=== PATIENT | female | born 1985 | race Caucasian/White ===

== ENCOUNTER 2022-03-18 08:13 | Emergency (ER) | payer OTHER, SELFPAY ==
[2022-03-18 08:20] VITALS: BP 134/60; PULSE 92; RESP 16; TEMP 38.1; O2SAT 100
--- NOTE | 2022-03-18 08:21 | ED.URI ---
HPI - URI/Sore Throat General Chief Complaint: Upper Respiratory Infection Stated Complaint: aches dizzy nausea chills Time Seen by Provider: 03/18/22 08:21 Source: patient and RN notes reviewed History of Present Illness HPI Narrative: Patient is a 36-year-old female presents the urgent care with complaints of body aches, nausea, chills and dizziness. Patient states that it started last night and woke up with increasing symptoms with fever. Patient has not taken anything [id number] for her symptoms. Patient states that her daughter influenza last week and she believes that she has the flu. Denies of any other ill contacts. No other complaints. No acute distress noted. Patient aware of the plan of care. Some parts of this dictation were generated by voice recognition software and may contain typographical and/or grammatical inaccuracies. Related Data Home Medications Medication Instructions Recorded Confirmed fluticasone propionate 50 mcg INTRANASAL BID PRN 03/18/22 03/18/22 Allergies Allergy/AdvReac Type Severity Reaction Status Date / Time No Known Allergies Allergy Unverified 03/12/19 18:12 Review of Systems Review of Systems: CONSTITUTIONAL: Reports a fever, chills EYES: Denies visual changes, redness, or discharge. ENT: Denies rhinorrhea, congestion, sore throat, or otalgia. CARDIOVASCULAR: Denies chest pain, palpitations, or edema. RESPIRATORY: Denies cough or dyspnea. GASTROINTESTINAL: Denies abdominal pain, vomiting, or diarrhea. Reports of nausea GENITOURINARY: Denies dysuria or hematuria. SKIN: Denies rash or itching. MUSCULOSKELETAL: Denies back pain, joint pain. reports of body aches NEUROLOGIC: Denies headache, numbness, or weakness. All other systems reviewed are negative, except as documented in HPI. PMFSH Comments At the time of my signature, I reviewed and agree with the nursing past medical, surgical, social, and family history. There is no relevant family history pertinent to the patient complaint. Exam Narrative: GENERAL: This is a well-nourished, well-developed patient. Appears fatigued HEAD: normocephalic, atraumatic. EYES: PERRL. Sclera clear/white. Vision is grossly intact. EARS: External ears normal, auditory canals clear and without drainage, TMs normal without perforation. Hearing grossly intact. NOSE: External nose normal with no obvious nasal discharge, nares without redness, yellow rhinorrhea. THROAT: Mucous membranes moist, posterior pharynx clear. Mild postnasal drainage NECK: Neck supple CARDIOVASCULAR: Regular rate and rhythm without murmurs, gallops, or rubs. RESPIRATORY: Clear to auscultation. Breath sounds equal bilaterally. No wheezes, rales, or rhonchi. GASTROINTESTINAL: Abdomen soft, non-tender, nondistended. Bowel sounds are active. No guarding. SKIN: warm, intact with no suspicious lesions or rash, good texture and turgor. NEURO: awake, alert, and oriented to person, place and time. There were no obvious focal neurologic abnormalities. EXTREMITIES: No clubbing, cyanosis, or edema. Course Course Level of Care: Express Care Visit Vital Signs Vital signs: Vital Signs Temperature 100.5 F H 03/18/22 08:20 Pulse Rate 92 03/18/22 08:20 Respiratory Rate 16 03/18/22 08:20 Blood Pressure 134/60 03/18/22 08:20 Pulse Oximetry 100 03/18/22 08:20 Temperature 100.5 F H 03/18/22 08:20 Pulse Rate 92 03/18/22 08:20 Respiratory Rate 16 03/18/22 08:20 Blood Pressure 134/60 03/18/22 08:20 Pulse Oximetry 100 03/18/22 08:20 Reviewed MDM - URI/Sore Throat MDM Narrative Medical decision making narrative: Reviewed lab results with the patient. She is aware that flu swab was negative. Rapid COVID swab was also negative. Your viral infection may take a few days to clear up however treat with [id number] medication for symptom relief such as Tylenol/ibuprofen/Zyrtec/Benadryl. Use the Benadryl prior to bedtime and humidifier at night. Use
== END 2022-03-18 09:15 | disposition home or self-care (01) ==
PROVIDERS: Emergency Provider Nurse Practitioner Family; PCP Family Medicine
DX: B34.9 Viral infection, unspecified (principal); Z20.822 Contact with and (suspected) exposure to COVID-19
CPT/HCPCS: 87426; 87804; 99203; C9803; G0463

== ENCOUNTER 2022-08-04 17:10 | Emergency (ER) | payer OTHER, SELFPAY ==
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
[2022-08-04 17:16] VITALS: BP 132/63; PULSE 78; RESP 14; TEMP 36.7; O2SAT 98
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
== END 2022-08-04 18:19 | disposition home or self-care (01) ==
PROVIDERS: Emergency Provider Nurse Practitioner; PCP Family Medicine
DX: S90.512A Abrasion, left ankle, initial encounter (principal); S50.812A Abrasion of left forearm, initial encounter; V87.8XXA Person injured in other specified noncollision transport accidents involving motor vehicle (traffic), initial encounter
CPT/HCPCS: 73610; 73630; 99213; G0463

== ENCOUNTER 2024-02-25 17:37 | Emergency (ER) | payer BC, SELFPAY ==
[2024-02-25 17:43] VITALS: BP 128/83; PULSE 78; RESP 16; TEMP 37.2; O2SAT 100
[2024-02-25 17:47] VITALS: BP 128/83; PULSE 78; RESP 16; TEMP 37.2; O2SAT 100
--- NOTE | 2024-02-25 17:53 | ED.URI ---
HPI - URI/Sore Throat General Chief Complaint: Upper Respiratory Infection Stated Complaint: Dizziness/Shortness of Breath/Chest Pain Time Seen by Provider: 02/25/24 18:02 Source: patient and RN notes reviewed Mode of arrival: ambulatory Limitations: no limitations History of Present Illness HPI Narrative: 38-year-old female presents with concern for 4 day history of cough, runny nose, stuffy nose, upper chest pain. Reports she had fever when symptoms 1st started. She has been taking DayQuil and NyQuil without relief. She has history of a bicuspid valve problem. MD elicited complaint: cough and nasal congestion Related Data Home Medications Medication Instructions Recorded Confirmed fluticasone furoate 100 inhalation 02/25/24 mcg-vilanterol 25 mcg/dose inhalation powder (Breo Ellipta) Allergies Allergy/AdvReac Type Severity Reaction Status Date / Time omeprazole Allergy Swelling Verified 02/25/24 18:01 Review of Systems Review of Systems: CONSTITUTIONAL: Reports malaise, history fever. EYES: Denies visual changes, redness, or discharge. ENT: Reports rhinorrhea, congestion. Denies otalgia and sore throat. CARDIOVASCULAR: Reports left chest pain with coughing. Denies palpitations, or edema. RESPIRATORY: Reports cough. Denies dyspnea. GASTROINTESTINAL: Denies abdominal pain, nausea, vomiting, diarrhea SKIN: Denies rash or itching. MUSCULOSKELETAL: Denies myalgia. NEUROLOGIC: Denies headache. All systems reviewed & are unremarkable except as noted in HPI and below PMFSH Past Medical History Medical History (Updated 02/25/24 @ 18:11 by Cherelle Rodriguez NP) No pertinent past medical history Surgical History Surgical History No pertinent past surgical history Family History Family History Mother Family history non-contributory Social History Social History (Updated 08/04/22 @ 18:27 by Gonzales Masters, GABRIELA, ) Substance use: never Gender identity (if verbalized by the patient): Female Spiritual care concerns: No Comments At time of signature, agree with nursing past medical, surgical, social and family history. There is no relevant family history pertinent to the presenting complaint Exam Narrative: GENERAL: Nontoxic-appearing, well-nourished, and in no acute distress. HEAD: Normocephalic EYES: PERRLA, conjunctivae clear ENT: Nares clear, turbinates edematous and erythematous, clear discharge. Mucous membranes moist. TM pearly schmid with dull light reflex bilaterally; no tragal tenderness. Oropharynx not erythematous without lesions. Tonsils not enlarged and without exudate, no drooling, no hoarseness, no trismus, uvula midline. NECK: Supple. No lymphadenopathy CHEST: Clear to auscultation, breath sounds equal. No wheezing, rhonchi, rales, or stridor. No respiratory distress, speaks in full sentences. Cough noted HEART: Regular rate and rhythm. No murmur heard. SKIN: Warm, dry, no rash. NEURO: Alert and oriented x3. PSYCH: Normal mood and affect Course Course Emergency Course: Patient is aware of diagnosis, understands and agrees to treatment plan. Anticipatory guidance given. Patient agrees to follow-up as directed and is aware of reasons to seek care at the emergency department. Portions of this record may have been created with voice recognition software Level of Care: Express Care Visit Vital Signs Vital signs: Vital Signs Temperature 98.9 F 02/25/24 17:43 Pulse Rate 78 02/25/24 17:43 Respiratory Rate 16 02/25/24 17:43 Blood Pressure 128/83 02/25/24 17:43 Pulse Oximetry 100 02/25/24 17:43 Oxygen Delivery Room Air 02/25/24 17:43 Temperature 98.9 F 02/25/24 17:47 Pulse Rate 78 02/25/24 17:47 Respiratory Rate 16 02/25/24 17:47 Blood Pressure 128/83 02/25/24 17:47 Pulse Oximetry 100 02/25/24 17:47 Oxy
--- NOTE | 2024-02-25 17:54 | ECG_ITS ---
SEE SCANNED COPY FOR CONFIRMED REPORT MTDD
== END 2024-02-25 18:15 | disposition home or self-care (01) ==
PROVIDERS: Emergency Provider Nurse Practitioner; PCP Family Medicine
DX: J06.9 Acute upper respiratory infection, unspecified (principal); R05.9 Cough, unspecified
CPT/HCPCS: 93005; 99213; G0463

== ENCOUNTER 2025-11-04 12:19 | Emergency (ER) | payer BC, SELFPAY ==
--- OUTSIDE RECORDS SUMMARY | 2024-07-29 11:30 | XMS_ITS ---
Author Organization [facility] ([address]) Address [address] [place] [address] Care Team Providers Care Ring Attacher Name Role Phone Natacha Cunha Unavailable [phone] REASON FOR VISIT Chronic upper airway symptoms concerning for uncontrolled atopic disease, Chronic lower airways symptoms concerning for possible asthma Problems Problem Type SNOMED Code ICD Code Onset Dates Problem Status W/U Status Risk Notes Problem Allergic rhinitis caused by pollen (disorder) (99057812) Allergic rhinitis due to pollen (J30.1) Active confirmed Problem Allergic rhinitis caused by animal hair and dander ([id number]) Allergic rhinitis due to animal (cat) (dog) hair and dander (J30.81) Active confirmed Problem Allergic rhinitis (54038581) Other allergic rhinitis (J30.89) Active confirmed Problem Chronic allergic conjunctivitis (78987060) Other chronic allergic conjunctivitis (H10.45) Active confirmed Problem Chronic rhinitis (76281431) Chronic rhinitis (J31.0) Active confirmed Problem Uncomplicated moderate persistent asthma (720015493) Moderate persistent asthma, uncomplicated (J45.40) Active confirmed Problem Uncomplicated mild persistent asthma (134809729) Mild persistent asthma, uncomplicated (J45.30) Active confirmed Problem Uncomplicated severe persistent asthma (327919240) Severe persistent asthma, uncomplicated (J45.50) Active confirmed Encounters Encounter Location Date Provider Diagnosis [facility] [address] [facility] [place] [address] 07/29/2024 Natacha Cunha Allergic rhinitis du e to pollen J30.1 ; Allergic rhinitis due to animal (cat) (dog) hair and dander J30.81 ; Other allergic rhinitis J30.89 ; Other chronic allergic conjunctivitis H10.45 ; Hypertrophy of nasal turbinates J34.3 ; Chronic rhinitis J31.0 ; Moderate persistent asthma, uncomplicated J45.40 ; Mild persistent asthma, uncomplicated J45.30 and Severe persistent asthma, uncomplicated J45.50 Assessments Encounter Date Diagnosis (ICD Code) Assessment Notes Treatment Notes Treatment Clinical Notes Section Notes 07/29/2024 Allergic rhinitis due to pollen (ICD-10 - J30.1) Given the history and symptoms, skin testing was performed to common aeroallergens to determine atopic status. clearly suffers from atopic disease based upon our skin testing and clinical history. Accordingly, we have introduced a new, aggressive medication regimen, discussed nasal washes and allergy-specific avoidance measures. We also discussed adjunctive therapies including subcutaneous, specific allergen immunotherapy as relates to the treatment and prevention of atopic disease. They are currently considering the risks, benefits and alternatives to this care. Risks: bleeding, infection, allergic reaction, anaphylaxis; Benefits: reduced need for medications, improved symptoms, disease modification. Alternatives: watch/wait, change medication regimen, improve allergy avoidance measures. Follow-up in 1 month for interval evaluation and management 07/29/2024 Allergic rhinitis due to animal (cat) (dog) hair and dander (ICD-10 - J30.81) Follow allergen avoidance, meds and consider SCIT as an adjunctive treatment to current regimen 07/29/2024 Other allergic rhinitis (ICD-10 - J30.89) Follow allergen avoidance, meds and consider SCIT as an adjunctive treatment to current regimen 07/29/2024 Other chronic allergic conjunctivitis (ICD-10 - H10.45) Given ocular signs and symptoms I encouraged allergy avoidance measures and meds as above. If symptoms persist, consider adding additional medications including intraocular antihistamine/mas t cell stabilizer, PRN and consider SCIT as an adjunctive measure 07/29/2024 Hypertrophy of nasal turbinates (ICD-10 - J34.3) 07/29/2024 Chronic rhinitis (ICD-10 - J31.0) 07/29/2024 Moderate persistent asthma, uncomplicated (ICD-10 - J45.40) 07/29/2024 Mild persistent asthma, uncomplicated (ICD-10 - J45.30) 07/29/2024 Severe persistent asthma, uncomplicated (ICD-10 - J45.50) Plan Of Treatment Treatment Notes Assessment Notes Allergic rhinitis due to pollen Given th e history and symptoms, skin testing was performed to common aeroallergens to determine atopic status. clearly suffers from atopic disease based upon our skin testing and clinical history. Accordingly, we have introduced a new, aggressive medication regimen, discussed nasal washes and allergy-specific avoidance measures. We also discussed adjunctive therapies including subcutaneous, specific allergen immunotherapy as relates to the treatment and prevention of atopic disease. They are currently considering the risks, benefits and alternatives to this care. Risks: bleeding, infection, allergic reaction, anaphylaxis; Benefits: reduced need for medications, improved symptoms, disease modification. Alternatives: watch/wait, change medication regimen, improve allergy avoidance measures. Follow-up in 1 month for interval evaluation and management Allergic rhinitis due to ani mal (cat) (dog) hair and dander Follow allergen avoidance, meds and consider SCIT as an adjunctive treatment to current regimen Other allergic rhinitis Follow allergen avoidance, meds and consider SCIT as an adjunctive treatment to current regimen Other chronic allergic conjunctivitis Gi medardo ocular signs and symptoms I encouraged allergy avoidance measures and meds as above. If symptoms persist, consider adding additional medications including intraocular antihistamine/mast cell stabilizer, PRN and consider SCIT as an adjunctive measure Next Appt Details Follow Up: 4 Weeks, Reason: Evaluation and Management Progress Notes * JERSONAlfredaBarbaraDOB:1985 (40 yo F)Acc No.[id number]:07/29/2024 Progress Notes Patient: Barbara ANTON Provider: BELTRAN LeonBC :1985 A ge:38 Y S ex:Female Date:07/29/2024 Address:[address] [place], [place] [id number] Subjective: * Chief Complaints: * 1 . Chronic upper airway symptoms concerning for uncontrolled atopic disease. 2. Chronic lower airways symptoms concerning for possible asthma. * HPI: * Introduction: HPI: x . * ROS: A LLERGY: Positive p er the HPI and history, otherwise unremarkable.? S PECIAL SENSES: Positve for n one. C ONSTITUTIONAL: Positive for n one. E NT: Positive p er the HPI and history, otherwise unremarkable.? R ESPIRATORY: Positive p er the HPI and history, otherwise unremakable.? O PHTHALMOLOGY: Positive for p er the HPI and history, otherwise unremarkable. E NDOCRINOLOGY: Positive for n one. C ARDIOLOGY: Positive for n one. G ASTROENTEROLOGY: Positive for n one. U ROLOGY: Positive for n one. D ERMATOLOGY: Positive for p er the HPI and history, otherwise unremakable. N EUROLOGY: Positive for n one. H EMATOLOGY/LYMPH: Positive for n one. M USCULOSKELETAL: Positive for n one. P SYCHOLOGY: Positive for n one. A ll other review of systems per the HPI and history, otherwise unremarkable. * Medical History: Objective: * Vitals: * Examination: G eneral examination: General appearance: p leasant, well-developed, well-nourished. HEENT: p upils equal, round, and reactive to light and accommodation, conjunctiva are injected bilaterally, no tenderness to palpation of the sinuses, TM's without evidence of acute infection, turbinates 2+ swollen and pale inferiorly bilaterally, clear rhinorrhea is present, no polyps noted, no septal perforation, posterior oropharynx is erythematous and cobblestoning is present, erythema on pharyngeal wall, no exudates, no tongue swelling, and uvula is midline. Oral cavity: n ormal, no lesions. Neck, thyroid : s upple, non-tender, no anterior cervical lymphadenopathy. Breasts : n ot performed. Heart: R RR, S1-S2, no murmurs, no rubs, no gallops. Lungs: c lear to auscultation and percussion in all lung bradley, no wheezes or crackles. Abdomen: s oft, NT/ND, normal active bowel sounds. Neurologic exam: u nremarkable. Skin: n ormal, no rash, dermatographism, urticaria, angioedema. Peripheral pulses: n ormal (2+) bilaterally. Back: n ormal. Extremities: n ormal ROM, no clubbing, no cyanosis, no edema. Genitalia: n ot performed. Assessment: * Assessment: 1. A llergic rhinitis due to pollen - J30.1 (Primary) 2 . A llergic rhinitis due to animal (cat) (dog) hair and dander - J30.81 3 . O ther allergic rhinitis - J30.89 4 . O ther chronic allergic conjunctivitis - H10.45 5 . H ypertrophy of nasal turbinates - J34.3 6 . C hronic rhinitis - J31.0? 7. M oderate persistent asthma, uncomplicated - J45.40 8 . M ild persistent asthma, uncomplicated - J45.30 9 . S evere persistent asthma, uncomplicated - J45.50 Plan: * Treatment: 2. A llergic rhinitis due to animal (cat) (dog) hair and dander Notes: Follow allergen avoidance, meds and consider SCIT as an adjunctive treatment to current regimen 3. O ther allergic rhinitis Notes: Follow allergen avoidance, meds and consider SCIT as an adjunctive treatment to current regimen 4. O ther chronic allergic conjunctivitis Notes: Given ocular signs and symptoms I encouraged allergy avoidance measures and meds as above. If symptoms persist, consider adding additional medications including intraocular antihistamine/mast cell stabilizer, PRN and consider SCIT as an adjunctive measure * Procedure Codes: 9 5004 PRICK TESTS, Units: 72.00 , 75101 INTRADERMAL TESTS, 23959 MEASURE BLOOD OXYGEN LEVEL, 05526 SELF-MGMT EDUC & TRAIN, 1 PT, S9441 ASTHMA ED NON-MD PROV PER SESSION, 49360 PT-FOCUSED HLTH RISK ASSMT, G8427 DOC MEDS VERIFIED W/PT OR RE * Preventive Medicine: Counseling: M edication instruction: W atch for side effects of prescribed medications, Nasal steroid/antihistamine instruction: avoid septum. E ducation: G ENERAL EDUCATION: Our staff spent an additional 30 minutes in direct contact with the patient educating them on their current diagnoses and proper treatment and prevention of symptoms and the proper use of medications. E ducation 2: A RC EDUCATION: Our staff discussed the appropriate allergen avoidance measures and medication utilization including upper airway hygiene with daily nasal washes given the patient's clinical status and diagnoses. SCIT EDUCATION: Discussed allergy immunotherapy including the relative risks, benefits and alternatives to this treatment as an adjunctive measure to current therapy, Allergy Immunotherapy: Risks: bleeding, infection, allergic reaction, anaphylaxis = severe allergic reaction that can cause ; Benefits: reduced need for medications, improved symptoms, disease modification. Alternatives: watch/wait, change medication regimen, improve allergy avoidance measures, Our staff discussed the warning signs of anaphylaxis and the indications to use self-injectable epinephrine and seek urgent or emergent care. P atient education material sent to portal? Y es * Follow Up: 4 Weeks (Reason: Evaluation and Management) * Billing Information: * Visit Code: * Procedure Codes: 59463 PRICK TESTS. Units: 72.00. 53543 INTRADERMAL TESTS. 34238 MEASURE BLOOD OXYGEN LEVEL. 27711 SELF-MGMT EDUC & TRAIN, 1 PT. S9441 ASTHMA ED NON-MD PROV PER SESSION. 95315 PT-FOCUSED HLTH RISK ASSMT. G8427 DOC MEDS VERIFIED W/PT OR RE. * Electronic signature of GEOVANY Ferris on 11/04/2025 at 12:24 PM PLUMBING AND HEATING MECHANIC Sign off status: Pending * Provider: GEOVANY Leon Date: 0 07/29/2024 Generated for Etta guzman/Sarah/Candy on: 1 01/05/2025 12:24 PM PLUMBING AND HEATING MECHANIC History and Physical Notes * HPI (History of Present Illness) Category Sub-Category Detail Notes Category Not es *Introduction HPI: x Examination Category Sub-Category Detail Notes Category Not es General examination HEENT: pupils equal , round, and reactive to light and accommodation, conjunctiva are injected bilaterally, no tenderness to palpation of the sinuses, TM's without evidence of acute infection, turbinates 2+ swollen and pale inferiorly bilaterally, clear rhinorrhea is present, no polyps noted, no septal perforation, posterior oropharynx is erythematous and cobblestoning is present, erythema on pharyngeal wall, no exudates, no tongue swelling, and uvula is midline Neck, thyroid : supple, non-tender, no anterior cervical lymphadenopathy Heart: RRR, S1-S2, no murmu rs, no rubs, no gallops Lungs: clear to auscultatio n and percussion in all lung bradley, no wheezes or crackles Abdomen: soft, NT/ND, normal active bowel sounds Extremities: normal ROM, no clubb ing, no cyanosis, no edema General appearance: pleasant, well-devel oped, well-nourished Skin: normal, no rash, oneil matographism, urticaria, angioedema Neurologic exam: unremarkable Oral cavity: normal, no lesions Breasts : not performed Peripheral pulses: normal (2+) bilatera lly Back: normal Genitalia: not performed
--- OUTSIDE RECORDS SUMMARY | 2024-08-11 11:30 | XMS_ITS ---
Author Organization [facility] ([address]) Address [address] [place] [address] Care Team Providers Care Regional Vice President Surgical Sales Name Role Phone Natacha Cunha Unavailable [phone] REASON FOR VISIT Chronic upper airway symptoms concerning for uncontrolled atopic disease, Chronic lower airways symptoms concerning for possible asthma Encounters Encounter Location Date Provider Diagnosis [facility] [address] [facility] [address] [place] [address] 08/11/2024 Natacha Cunha Allergic rhinitis du e to [...] Treatment Notes Treatment Clinical Notes Section Notes 08/11/2024 Allergic rhinitis due to pollen (ICD-10 - [...] 1 month for interval evaluation and management 08/11/2024 Allergic rhinitis due to animal (cat) (dog) hair and dander (ICD-10 - J30.81) Follow allergen avoidance, meds and consider SCIT as an adjunctive treatment to current regimen 08/11/2024 Other allergic rhinitis (ICD-10 - J30.89) Follow allergen avoidance, meds and consider SCIT as an adjunctive treatment to current regimen 08/11/2024 Other chronic allergic conjunctivitis (ICD-10 - H10.45) Given ocular signs and symptoms I encouraged allergy avoidance measures and meds as above. If symptoms persist, consider adding additional medications including intraocular antihistamine/mas t cell stabilizer, PRN and consider SCIT as an adjunctive measure 08/11/2024 Hypertrophy of nasal turbinates (ICD-10 - J34.3) 08/11/2024 Chronic rhinitis (ICD-10 - J31.0) 08/11/2024 Moderate persistent asthma, uncomplicated (ICD-10 - J45.40) 08/11/2024 Mild persistent asthma, uncomplicated (ICD-10 - J45.30) 08/11/2024 Severe persistent asthma, uncomplicated (ICD-10 - J45.50) [...] Reason: Evaluation and Management Progress Notes * Barbara ARAUZDOB:1985 (40 yo F)Acc No.[id number]:08/11/2024 Progress Notes Patient: Barbara ANTON Provider: GEOVANY Leon :1985 A ge:38 Y S ex:Female Date:08/11/2024 Address:[address] [place] [address], [id number] Subjective: * Chief Complaints: * 1 . [...] 9 5004 PRICK TESTS, Units: 72.00 , 10887 INTRADERMAL TESTS, 94149 MEASURE BLOOD OXYGEN LEVEL, 56692 SELF-MGMT EDUC & TRAIN, 1 PT, S9441 ASTHMA ED NON-MD PROV PER SESSION, 55185 PT-FOCUSED HLTH RISK ASSMT, G8427 DOC MEDS [...] Information: * Visit Code: * Procedure Codes: 36085 PRICK TESTS. Units: 72.00. 89875 INTRADERMAL TESTS. 08137 MEASURE BLOOD OXYGEN LEVEL. 85676 SELF-MGMT EDUC & TRAIN, 1 PT. S9441 ASTHMA ED NON-MD PROV PER SESSION. 94644 PT-FOCUSED HLTH RISK ASSMT. G8427 DOC MEDS VERIFIED W/PT OR RE. * Electronic signature of GEOVANY Ferris on 11/04/2025 at 12:23 PM LABOR SUPERVISOR Sign off status: Pending * Provider: GEOVANY Leon Date: Generated for Etta guzman/Sarah/eTransmitting on: 01/05/2025 12:23 PM LABOR SUPERVISOR History and Physical Notes * HPI (History [...]
--- OUTSIDE RECORDS SUMMARY | 2025-11-04 12:23 | XMS_ITS | Encounter Summary ---
Author Organization [facility] Address [address] [place] [address] Phone Care Team Providers Care Personnel Records Clerk Name Role Phone Ar Carrasco MD Primary Care Provider [phone] Arash Green MD Unavailable Monik Blanc CAE ENGINEER, PUBLIC RELATIONS COORDINATOR Unavailable [phone] Judith Marr CAE ENGINEER, PUBLIC RELATIONS COORDINATOR Unavailable Mikala Eaton DO Primary Care Provider [phone] Huong Patrick CAE ENGINEER, PUBLIC RELATIONS COORDINATOR Unavailable Encounter Details Date Type Department Care Team (Late st Contact Info) Description 12/05/2023 Telephone [facility] Cardiac Vice President Of Software Engineering [address] [place] [address] Judith Marr, CAE ENGINEER, PUBLIC RELATIONS COORDINATOR #[address] [facility], [address] [place], [place] [id number] Social History Tobacco Use Types Packs/Day Years Used Date Smoking Tobacco: Never Smokeless Tobacco: Never Alcohol Use Standard Drinks/Week Comments Not Currently 1 (1 standard drink = 0.6 oz pur e alcohol) once a week [facility] Utilities Answer Date Recorded In the past 12 months has [employer] electric, gas, oil, or water company threatened to shut off services in your home? No 10/30/2023 Social Connection and Isolation Panel Answer Date Recorded In a typical week, how many times do you talk on the phone with family, friends, or neighbors? More than three times a week 10/30/2023 How often do you get togethe r with friends or relatives? More than three times a week 10/30/2023 How often do you attend chur ch or lutheran services? Never 10/30/2023 Do you belong to any clubs o r organizations such as episcopalian groups, unions, fraternal or athletic groups, or school groups? No 10/30/2023 How often do you attend meet ings of the clubs or organizations you belong to? Never 10/30/2023 Are you , , di vorced, , never , or living with a partner? 10/30/2023 AUDIT-C Answer Date Recorded Q1: How often do you have a drink containing alc ohol? 2-4 times a month 10/30/2023 Q2: How many drinks containi ng alcohol do you have on a typical day when you are drinking? 1 or 2 10/30/2023 Q3: How often do you have si x or more drinks on one occasion? Never 10/30/2023 Overall Financial Resource Strain (CARDIA) Answe r Date Recorded How hard is it for you to pa y for the very basics like food, housing, medical care, and heating? Not very hard 10/30/2023 PHQ-2 Answer Date Recorded Total Score - Questions 1-9 0 11/11 [facility] - Occupational Stress Questionnaire Answer Date Recorded Do you feel stress - tense, restless, nervous, or anxious, or unable to sleep at night because your mind is troubled all the time - these days? To some extent 10/30/2023 Exercise Vital Sign Answer Date Recorde d On average, how many days pe r week do you engage in moderate to strenuous exercise (like a brisk walk)? 0 days 10/30/2023 On average, how many minutes do you engage in exercise at this level? 0 min 10/30/2023 Hunger Vital Sign Answer Date Recorded Within the past 12 months, y ou worried that your food would run out before you got the money to buy more. Never true 10/30/20 23 Within the past 12 months, t he food you bought just didn't last and you didn't have money to get more. Never true 10/30/2023 PRAPARE - Transportation Answer Date Re corded In the past 12 months, has l ack of transportation kept you from medical appointments or from getting medications? No 10/11 In the past 12 months, has l ack of transportation kept you from meetings, work, or from getting things needed for daily living? No 10/30/2023 Housing Stability Vital Sign Answer Johnny e Recorded In the last 12 months, was t here a time when you were not able to pay the mortgage or rent on time? No 10/30/2023 In the last 12 months, how many places have you lived? 1 10/30/2023 In the last 12 months, was t here a time when you did not have a steady place to sleep or slept in a assisted (including now)? No 10/30/2023 Education Answer Date Recorded What is the highest level of school you have completed or the highest degree you have received? GED or equivalent Sexually Active Control Partners Comments Yes None Male Comments No Sex and Gender Information Value Date Recorded Sex Assigned at Not on file Legal Sex Female 12:37 AM CDT Gender Identity Not on file Sexual Orientation Not on file documented as of this encounter Miscellaneous Notes * Telephone Encounter - Janet Solomon RN - 12/05/2023 10:41 AM FREIGHT AND PASSENGER AGENT Contacted patient to discuss ECHO appointment for next week--12/11/2023 @ 0800. Patient provided arrival instructions and questions addressed. -Cardiac Nurse Navigator GHT AND PASSENGER AGENT documented in this encounter Plan of Treatment Not on file documented as of this encounter Visit Diagnoses Not on filedocumented in this encounter Additional Health Concerns Infection Onset Date Last Indicated Resolved Time COVID - 19 Confirmed 12/29/2023 12/29/2023 024 12:16 AM FREIGHT AND PASSENGER AGENT COVID - 19 02/26/2024 02/26/2024 02/26/2024 10:2 2 AM CDT Influenza 02/26/2024 02/26/2024 03/04/2024 12:1 6 AM CDT Assessment Noted Time PHQ-9 Depression Total Score: 0 11/29/19 22 10:00 AM FREIGHT AND PASSENGER AGENT documented as of this encounter Care Teams Personnel Records Clerk Relationship Specialty Start Date End Date Ar Carrasco MD PCP - General Family Medicine 06/24/19 04/24/24 Mikala Eaton DO [address] [place] [address] PCP - General Family Medicine 04/25/24 Arash Green MD [facility] [address] [place] [address] Consulting Physician Colon and Rectal Surgery 07/10/21 Monik Blanc, FRANCINE, PUBLIC RELATIONS COORDINATOR 4 [facility] [address] [place] [address] Family Medicine 07/04/22 Judith Marr, CAE ENGINEER, PUBLIC RELATIONS COORDINATOR #2 [facility], [address] [place] [address] Nurse Practitioner Cardiology 11/25/23 05/24/25 Huong Patrick APRN, PUBLIC RELATIONS COORDINATOR #2 [facility] [address] [place] [address] Nurse Practitioner Pulmonary Disease 06/22/24 documented as of this encounter
--- OUTSIDE RECORDS SUMMARY | 2025-11-04 12:23 | XMS_ITS | Encounter Summary ---
Author Organization [facility] Address [address] [place] [address] Phone Care Team Providers Care Choir Accompanist Name Role Phone Ar Carrasco MD Primary Care Provider [phone] Arash Green MD Unavailable Monik Blanc NATURAL SCIENCE MANAGER, TOOLROOM HELPER Unavailable [phone] Judith Marr NATURAL SCIENCE MANAGER, TOOLROOM HELPER Unavailable Mikala Eaton DO Primary Care Provider [phone] Huong Patrick NATURAL SCIENCE MANAGER, TOOLROOM HELPER Unavailable Encounter Details Date Type Department Care Team (Latest Contact Info) Description 12/19/2023 Transcribe Orders [facility] [address] [place] [id number] Judith Marr, NATURAL SCIENCE MANAGER, TOOLROOM HELPER #2 [facility], [address] [place], [place] [id number] Preop testing (Primary Dx); Hypertrophic cardiomyopathy (HCC) Social History Tobacco Use Types Packs/Day Years Used Date Smoking Tobacco: Never Smokeless Tobacco: Never Alcohol Use Standard Drinks/Week Comments Not Currently 1 (1 standard drink = 0.6 oz pur e alcohol) once a week [facility] Utilities Answer Date Recorded In the past 12 months has th e electric, gas, oil, or water [employer] threatened to shut off services in your [...] 10/30/2023 How often do you attend chur or congregation services? Never 10/30/2023 Do you belong to any clubs o r organizations such as christian groups, unions, fraternal or athletic groups, or [...] Total Score - Questions 1-9 0 11/11 [facility] of Occupat ional Health - Occupational Stress [...] money to buy more. Never true 10/30/20 Within the past 12 months, t he [...] place to sleep or slept in a fdc (including now)? No 10/30/2023 Education Answer Date [...] on file documented as of this encounter Plan of Treatment Not on file documented as of this encounter Results * (ABNORMAL) BASIC METABOLIC PANEL W/ CALCIUM TOTAL (12/29/2023 2:54 PM CUSTOMS ENTRY CLERK) SODIUM 141 136 - 145 mmol/L 12/29/2023 4:06 PM CUSTOMS ENTRY CLERK [facility] POTASSIUM 3.3(L) 3.5 - 5.1 mmol/L 12/29/2023 4:06 PM CUSTOMS ENTRY CLERK [facility] CHLORIDE 106 98 - 107 mmol/L 12/29/2023 4:06 PM CUSTOMS ENTRY CLERK [facility] CO2, VENOUS 26 22 - 30 mmol/L 12/29/2023 4:06 PM CUSTOMS ENTRY CLERK [facility] ANION GAP 12.3 <18.0 mmol/L 12/29/2023 4:06 PM CUSTOMS ENTRY CLERK [facility] GLUCOSE 61(L) 70 - 99 mg/dL 12/29/2023 4:06 PM [facility] BUN 9 5 - 18 mg/dL 12/29/2023 4:06 PM [facility] CREATININE, BLOOD 0.86 0.60 - 1.00 mg/dL 12/29/2023 4:06 PM [facility] BUN/CREATININE RATIO 10(L) 12 - 20 ratio 12/29/2023 4:06 PM [facility] CALCIUM 9.3 8.7 - 10.5 mg/dL 12/29/2023 4:06 PM [facility] IS THE PATIENT REQUIRED TO BE FASTING? No 12/29/2023 4:06 PM [facility] GFR, ESTIMATED >60 >=60 12/29/2023 4:06 PM [facility] Comment: Creatinine Clearance is the preferred criteria for selecting drug dose adjustments in renally impaired patients. The GFR is provided as additional pertinent clinical information. GFR is reported in mL/min/1.73 sq m. Calculation based on the Chronic Kidney Disease Epidemiology Collaboration (CKD- EPI) equation refit without adjustment for race. GFR, EST. >60 >=60 024 4:06 PM [facility] GFR, EST. NONAFRICAN >60 >=60 12/29/2023 4:06 PM [facility] Blood Venipuncture / Unknown 12/29/2023 2:54 PM CUSTOMS ENTRY CLERK 12/29/2023 3:40 PM CUSTOMS ENTRY CLERK us Judith Marr APRN, TOOLROOM HELPER CHEMISTRY ORDERABLES Final Result [facility] [address] [place] [address] documented in this encounter Visit Diagnoses Diagnosis Preop testing- Primary Preoperative examination, unspecified Hypertrophic cardiomyopathy Other hypertrophic cardiomyopathy documented in this encounter Additional Health Concerns Infection Onset Date Last Indicated Resolved Time COVID - 19 Confirmed 12/29/2023 12/29/2023 024 12:16 AM CUSTOMS ENTRY CLERK COVID - 19 02/26/2024 02/26/2024 02/26/2024 10:2 2 AM CDT Influenza 02/26/2024 02/26/2024 03/04/2024 12:1 6 AM CDT Assessment Noted Time PHQ-9 Depression Total Score: 0 11/29/19 22 10:00 AM CUSTOMS ENTRY CLERK documented as of this encounter Care Teams Choir Accompanist Relationship Specialty Start Date End Date Ar Carrasco MD PCP - General Family Medicine 06/24/19 04/24/24 Mikala Eaton DO 2 [facility] [place] [facility] [place] [place] [address] PCP - General Family Medicine 04/25/24 Arash Green MD #2 [facility] [address] [place] [address] Consulting Physician Colon and Rectal Surgery 07/10/21 Monik Blanc APRN, TOOLROOM HELPER [address] [place] [address] [facility] [address] [place] [address] Family Medicine 07/04/22 Judith Marr APRN, TOOLROOM HELPER #2 [facility], [address] [place] [address] Nurse Practitioner Cardiology 11/25/23 05/24/25 Huong Patrick APRN, TOOLROOM HELPER #2 [facility] [address] [place] [address] Nurse Practitioner Pulmonary Disease 06/22/24 documented as of this encounter
--- OUTSIDE RECORDS SUMMARY | 2025-11-04 12:23 | XMS_ITS | Encounter Summary ---
Author Organization [facility] Address [address] [place] [address] Phone Care Team Providers Care Jig Bore Tool Maker Name Role Phone Ar Carrasco MD Primary Care Provider Arash Green MD Unavailable Monik Blanc HAM PASSER, COMPUTER SYSTEMS ARCHITECT Unavailable [phone] Judith Marr HAM PASSER, COMPUTER SYSTEMS ARCHITECT Unavailable Mikala Eaton DO Primary Care Provider [phone] Huong Patrick HAM PASSER, COMPUTER SYSTEMS ARCHITECT Unavailable Encounter Details Date Type Department Care Team (Late st Contact Info) Description 12/23/2023 Transcribe Orders [facility] [address] [place] [id number] Judith Marr, HAM PASSER, COMPUTER SYSTEMS ARCHITECT #2 [facility], [address] [place], [place] [id number] Preop testing (Primary Dx) Social History Tobacco Use Types Packs/Day Years Used Date Smoking Tobacco: Never Smokeless Tobacco: Never Alcohol Use Standard Drinks/Week Comments Not Currently 0 (1 standard drink = 0.6 oz pur e alcohol) occassional [facility] Utilities Answer Date Recorded In the past 12 months has th e electric, gas, oil, or water company threatened [...] often do you attend chur ch or jainism services? Never 10/30/2023 Do you belong to any clubs o r organizations such as restorationism groups, unions, fraternal or athletic groups, or [...] Total Score - Questions 1-9 0 11/11 [facility] of Occupat ional Health - Occupational Stress [...] place to sleep or slept in a skilled nursing (including now)? No 10/30/2023 Education Answer Date [...] as of this encounter Results * (ABNORMAL) SARS-COV-2 BY MOLECULAR (12/29/2023 2:54 PM COLLECTION SYSTEMS ADMINISTRATOR) SARSCOV2 DETECTED( A) (Referenc e Range for this test is Not Detected) 12/29/2023 4:15 PM COLLECTION SYSTEMS ADMINISTRATOR [facility] Comment:This test was perfor med by a Reverse Time Clock Repairer PCR Method. Other NASOPHARYNGEAL SWAB / Unknown Non-Phlebotomy Collection / Unknown 12/29/2023 2:54 PM COLLECTION SYSTEMS ADMINISTRATOR 12/29/2023 3:39 PM COLLECTION SYSTEMS ADMINISTRATOR Narrative [facility] - 12/29/2023 4:15 PM COLLECTION SYSTEMS ADMINISTRATOR Authorized Fact Sheets about this test for providers and patients are available at: https://www.fda.gov/medical-devices/aefyccyzy-onwzjzkhmg-avscrib-devices/emergen -us e-authorizations Judith Marr APRN, KARL MICROBIOLOGY - GENER AL ORDERABLES Final Result [facility] [address] [place] [address] documented in this encounter Visit Diagnoses Diagnosis Preop testing- Primary Preoperative examination, unspecified documented in this encounter Additional Health Concerns Infection Onset Date Last Indicated Resolved Time COVID - 19 Confirmed 12/29/2023 12/29/2023 024 12:16 AM COLLECTION SYSTEMS ADMINISTRATOR COVID - 19 02/26/2024 02/26/2024 02/26/2024 10:2 2 AM CDT Influenza 02/26/2024 02/26/2024 03/04/2024 12:1 6 AM CDT Assessment Noted Time PHQ-9 Depression Total Score: 0 11/29/19 22 10:00 AM COLLECTION SYSTEMS ADMINISTRATOR documented as of this encounter Care Teams Jig Bore Tool Maker Relationship Specialty Start Date End Date Ar Carrasco MD PCP - General Family Medicine 06/24/19 04/24/24 Mikala Eaton DO 2 [facility]. [address] [place] [address] PCP - General Family Medicine 04/25/24 Arash Green MD #2 [facility] [address] [place] [address] Consulting Physician Colon and Rectal Surgery 07/10/21 Monik Blanc APRN, COMPUTER SYSTEMS ARCHITECT [address] [place] [address] [address] [place] [address] Family Medicine 07/04/22 Judith Marr APRN, COMPUTER SYSTEMS ARCHITECT #2 [facility], [address] [place] [address] Nurse Practitioner Cardiology 11/25/23 05/24/25 Huong Patrick APRN, COMPUTER SYSTEMS ARCHITECT #[address] [facility] [place] [address] [place] [address] Nurse Practitioner Pulmonary Disease 06/22/24 documented as of this encounter
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
--- OUTSIDE RECORDS SUMMARY | 2025-11-04 12:24 | XMS_ITS | Clinical Summary ---
Author Organization [email or web address] Address [address] [facility] [place] [address] Care Team Providers Care Liquid Chlorine Operator Name Role Phone Unavailable Primary Care Provider Unavailabl e Source Comments [email or web address],non-owned Affiliates and Associated Physician Practices is amultiple site organization consisting of ambulatory clinics and hospital sitesin [place], [place], [place] and [place]. This disclosure is being madepursuant to the Care Everywhere program and may not contain all information available regarding this patient. Last updated 18.[email or web address] Allergies No known active allergies Medications * Be aware that medications may not be up to date on this document. Alwaysverify current medications with the patient. fluticasone propionate (FLONASE) 50 MCG/ACT nasal sprayIndications:Acu te nasopharyngitis (common cold) [place] 1 spray into each nostril 2 times daily 1 bottles 7 Active Social History Tobacco Use Types Packs/Day Years Used Date Smoking Tobacco: Never Assessed Comments Unknown Sex and Gender Information Value Date Recorded Sex Assigned at Not on file Legal Sex Female 8:22 AM HEATER INSTALLER Gender Identity Not on file Sexual Orientation Not on file Last Filed Vital Signs Vital Sign Reading Time Taken Comments Blood Pressure 112/72 09/16/2017 9:49 AM HEATER INSTALLER Pulse 93 09/16/2017 9:49 AM HEATER INSTALLER Temperature 37.9 C (100.2 F) 09/16/2017 9:49 AM HEATER INSTALLER Respiratory Rate - - Oxygen Saturation - - Inhaled Oxygen Concentration - - Weight 78 kg (172 lb) 09/16/2017 9:49 AM HEATER INSTALLER Height 160 cm (5' 3) 09/16/2017 9:49 AM HEATER INSTALLER Body Mass Index 30.47 09/16/2017 9:49 AM HEATER INSTALLER Plan of Treatment Health Maintenance Due Date Last Done Comments LIPID TESTING 1985 MAMMOGRAM 1985 HIV SCREENING 2000 HEPATITIS C SCREENING 08/13/2003 DTAP/TDAP/TD VACCINES (1 - Tdap) 2004 HEPATITIS B VACCINE (1 of 3 - 19+ 3-dose series) 2004 PAP SMEAR 2006 HPV VACCINE (1 - 3-dose SCDM series) 2012 DEPRESSION SCREENING 11/10/2024 COVID-19 VACCINE (1 - 2024-2 6 season) 2025 INFLUENZA VACCINE (#1) 2025 09/23/2011 ZOSTER VACCINE (1 of 2) 2035 HIB VACCINE Aged Out No longer eligi ble based on patient's age to complete this topic MENINGOCOCCAL (Group B) VACC INE SHARED DECISION-MAKING Aged Out No longer eligibl e based on patient's age to complete this topic MENINGOCOCCAL GROUPS A/C/Y/W VACCINE Aged Out No longer eligible b ased on patient's age to complete this topic PNEUMOCOCCAL VACCINE Aged Out No long er eligible based on patient's age to complete this topic Insurance [facility] MEDICAID [employer] [place]
--- OUTSIDE RECORDS SUMMARY | 2025-11-04 12:24 | XMS_ITS | Patient Health Record ---
Author Organization [facility] [place] ([address]) Address [address] [place] [address] Care Team Providers Care Batching Operator Name Role Phone Guerline Natacha Unavailable [phone] Reason For Referral No Information Problems Problem Type SNOMED Code ICD Code Onset Dates Problem Status W/U Status Risk Notes Problem Chronic allergic conjunctivitis (47610609) Other chronic allergic conjunctivitis (H10.45) Active confirmed Problem Allergic rhinitis caused by pollen (disorder) (58153927) Allergic rhinitis due to pollen (J30.1) Active confirmed Problem Allergic rhinitis (07532675) Other allergic rhinitis (J30.89) Active confirmed Problem Chronic rhinitis (97976145) Chronic rhinitis (J31.0) Active confirmed Problem Uncomplicated mild persistent asthma (591547097) Mild persistent asthma, uncomplicated (J45.30) Active confirmed Problem Uncomplicated moderate persistent asthma (063694647) Moderate persistent asthma, uncomplicated (J45.40) Active confirmed Problem Uncomplicated severe persistent asthma (820449379) Severe persistent asthma, uncomplicated (J45.50) Active confirmed Problem Allergic rhinitis caused by animal hair and dander (265749412020753) Allergic rhinitis due to animal (cat) (dog) hair and dander (J30.81) Active confirmed Plan Of Treatment No Information Insurance Providers Payer Name Payer Address Payer Phone Subscriber Number Group Number Insured Name Patient Relationship to Insured Coverage Start Date Coverage End Date [facility] [address] [place] [address] [id number] Barbara Osborne Self - patient is the insured 4
--- OUTSIDE RECORDS SUMMARY | 2025-11-04 12:24 | XMS_ITS | Clinical Summary ---
Author Organization [facility] Address [address] [place] [address] Phone Care Team Providers Care Composite Laminator Name Role Phone Arash Green MD Unavailable Monik Blanc APRN, POLYSOMNOGRAPHY TECH Unavailable Mikala Eaton DO Primary Care Provider [phone] Huong Patrick APRN, POLYSOMNOGRAPHY TECH Unavailable Allergies Active Allergy Reactions Criticality Noted Date Comments Omeprazole Swelling 12/04/2023 Medications albuterol (ProAir HFA) 108 (90 Base) MCG/ACT Aerosol Solution take 2 Puffs by inhalation every 4 hours as needed for Wheezing. 8.5 g 6 3 Active Multiple Vitamins-Minerals (HAIR SKIN NAILS PO) Take by mouth daily. Active Probiotic Product (PROBIOTIC DAILY PO) Take by mouth daily. Active COLLAGEN PO Take by mouth daily. Active mometasone furo-formoterol fum (Dulera) 100-5 MCG/ACT AerosolIndication s:Mild intermittent asthma without status asthmaticus without complication take 2 Puffs by inhalation every 12 hours. 13 g 5 4 Active montelukast (SINGULAIR) 10 MG TabletIndications :Mild intermittent asthma without status asthmaticus without complication Take 1 Tablet by mouth every evening. 90 Tablet 3 4 Active ergocalciferol (VITAMIN D) 26076 UNIT Capsule Take 1 Capsule by mouth once a week. 12 Capsule 5 Active SUMAtriptan (IMITREX) 50 MG Tablet Take 1 Tablet by mouth once as needed for Migraine for up to 36 doses. Use as directed. May repeat dose in 2 hours if headache recurs. 9 Tablet 3 5 Active Emollient (COLLAGEN EX) Take by mouth daily. Active amitriptyline (ELAVIL) 25 MG TabletIndications :Gastroesophageal reflux disease, unspecified whether esophagitis present,Chest pain, unspecified type Take 1 Tablet by mouth nightly. 30 Tablet 5 Active famotidine (PEPCID) 20 MG TabletIndications :Gastroesophageal reflux disease, unspecified whether esophagitis present,Chest pain, unspecified type Take 1 Tablet by mouth 2 times daily. 60 Tablet 5 Active Active Problems Problem Noted Date Diagnosed Date Nodule of lower lobe of right lung 09/23/2024 SOB (shortness of breath) 06/22/2024 Chest wall pain 06/22/2024 Asthma without status asthmaticus 06/22/2024 Breast lump in female 06/24/2019 Low grade squamous intraepit helial lesion (LGSIL) on cervicovaginal cytologic smear 06/24/2019 Visit for annual health examination (Adult) 06/10 Vertigo 06/24/2019 Encounters Date Type Department Care Team Description 10/19/2025 Telephone [facility] [address] [place] [address] Mikala Eaton, DO Need Order 08/22/2025 11:40 AM CDT Office Visit [facility] [address] [place] [phone] Hazel Brar, HAZMAT TRUCK DRIVER, POLYSOMNOGRAPHY TECH Chest pain, unspecified type (Primary Dx); Gastroesophageal reflux disease, unspecified whether esophagitis present; Dyspnea on exertion Discharge Disposition: Discharged to home or Selfcare 08/22/2025 8:17 AM CDT - 08/22/2025 11:59 PM CDT [facility] [address] [place] [id number] Claude Del Angel MD Discharge Disposition: Discharged to home or Selfcare 08/22/2025 Travel from Last 3 Months Immunizations Immunization Administration Dates Next Due Influenza Vaccine 09/23/2011 Family History Medical History Relation Name Comments Autoimmune Disease Daughter Arthritis Half-Brother Suicide Attempts Maternal Grandfather Other-comment Maternal Grandmother divert icular disease Arthritis Mother Adrianne Rheumatoid Arthritis Mother Adrianne Scoliosis Mother Adrianne No Known Problems Paternal Grandfather No Known Problems Paternal Grandmother Relation Name Status Comments Daughter Alive Half-Brother Alive Maternal Grandfather Maternal Grandmother Mother Adrianne Alive Paternal Grandfather Paternal Grandmother Social History Tobacco Use Types Packs/Day Years Used Date Smoking Tobacco: Never Smokeless Tobacco: Never Tobacco Cessation:Counseling Given: No Alcohol Use Standard Drinks/Week Comments Yes 0 (1 standard drink = 0.6 oz pur e alcohol) occassional [facility] Utilities Answer Date Recorded In the past 12 months has [employer] electric, gas, oil, or water company threatened to shut off services in your home? No 05/25/2024 Social Connection and Isolation Panel Answer Date Recorded In a typical week, how many times do you talk on the phone with family, friends, or neighbors? More than three times a week 05/25/2024 How often do you get togethe r with friends or relatives? Three times a week 05/25/2024 How often do you attend [facility] or confucianist services? More than 4 times per year 05/25/2024 Do you belong to any clubs o r organizations such as religious groups, unions, fraternal or athletic groups, or school groups? No 05/25/2024 How often do you attend meet ings of the clubs or organizations you belong to? Never 05/25/2024 Are you , , di vorced, , never , or living with a partner? 05/25/2024 AUDIT-C Answer Date Recorded Q1: How often do you have a drink containing alc ohol? 2-4 times a month 05/25/2024 Q2: How many drinks containi ng alcohol do you have on a typical day when you are drinking? 1 or 2 05/25/2024 Q3: How often do you have si x or more drinks on one occasion? Never 05/25/2024 Overall Financial Resource Strain (CARDIA) Answe r Date Recorded How hard is it for you to pa y for the very basics like food, housing, medical care, and heating? Not hard at all 05/25/2024 PHQ-2 Answer Date Recorded Total Score - Questions 1-9 0 12/12 [facility] - Occupational Stress Questionnaire Answer Date Recorded Do you feel stress - tense, restless, nervous, or anxious, or unable to sleep at night because your mind is troubled all the time - these days? Only a little 05/25/2024 Exercise Vital Sign Answer Date Recorde d On average, how many days pe r week do you engage in moderate to strenuous exercise (like a brisk walk)? 1 day 05/25/2024 On average, how many minutes do you engage in exercise at this level? 20 min 05/25/2024 Hunger Vital Sign Answer Date Recorded Within the past 12 months, y ou worried that your food would run out before you got the money to buy more. Never true 05/25/20 24 Within the past 12 months, t he food you bought just didn't last and you didn't have money to get more. Never true 05/25/2024 PRAPARE - Transportation Answer Date Re corded In the past 12 months, has l ack of transportation kept you from medical appointments or from getting medications? No 05/10 In the past 12 months, has l ack of transportation kept you from meetings, work, or from getting things needed for daily living? No 05/25/2024 Housing Stability Vital Sign Answer Johnny e [...] place to sleep or slept in a chcf (including now)? No 10/30/2023 Housing Stability Vital Sign Answer Johnny e Recorded In the last 12 months, was t here a time when you were not able to pay the mortgage or rent on time? No 05/25/2024 Number of Times Moved in the Last Year Not on fi le 05/25/2024 At any time in the past 12 m [facility], were you homeless or living in a chcf (including now)? No 05/25/2024 Education Answer Date Recorded What is the [...] Sign Reading Time Taken Comments Blood Pressure 132/78 08/22/2025 11:12 AM CDT Pulse 73 08/22/2025 11:12 AM CDT Temperature 36.2 C (97.1 F) 08/22/2025 11:12 AM CDT Respiratory Rate 16 08/22/2025 11:12 AM CDT Oxygen Saturation 98% 08/22/2025 11:12 AM CDT Inhaled Oxygen Concentration - - Weight 79.8 kg (176 lb) 08/22/2025 11:12 AM CDT Height 157.5 cm (5' 2) 08/22/2025 11:12 AM CDT Body Mass Index 32.19 08/22/2025 11:12 AM CDT Plan of Treatment Health Maintenance Due Date Last Done Comments Varicella Immunization (1 of 2 - 13+ 2-dose series) 1998 Pap Smear 03/07/2025 03/07/2022 Mammogram 08/22/2026 08/22/2025 Cervical Cancer Screening (CCS) 12/10/2029 HPV/Cotest 12/10/2029 12/10/2024 Respiratory Syncytial Virus (RSV) Immunization (Adult) (1 - 1-dose 75+ series) 2060 Influenza Immunization Discontinued 09/23/2011 Hepatitis C Virus (HCV) Screening Completed 025 Discussion re Starting/Frequ ency of Mammograms Completed 08/22/2025 Hepatitis B Immunization Discontinued Human Papillomavirus (HPV) Immunization (No Doses Required) Completed Meningococcal Immunization (ACWY) Aged Out No longer eligible based on patient's age to complete this topic Pneumococcal Immunization Combined Discontinued Rotavirus Immunization Aged Out No lo nger eligible based on patient's age to complete this topic SARS-COV-2 Immunization Discontinued TdaP Immunization Discontinued Procedures Procedure Name Priority Date/Time Associated Diagnosis Comments [facility] SCREENING BILATERAL DIGITAL W CAD W NATHANIEL Routine 08/22/2025 8:45 AM CDT Encounter for screening mammogram for malignant neoplasm of breast HEPATITIS C ANTIBODY Routine 01/06/2025 10:10 AM FORKLIFT SUPERVISOR Need for hepatitis C screening test PATHOLOGY CYTOLOGY SENIOR SYSTEMS ARCHITECT 03/07/2022 12:00 AM CDT from Last 3 Months or Most Recently Relevant to Health Maintenance Results * [facility] SCREENING BILATERAL DIGITAL W CAD W NATHANIEL (08/22/2025 8:45 AM CDT) Anatomical Region Laterality Modality breast Bilateral Mammography 08/22/2025 8:17 AM CDT Impressions 08/22/2025 1:47 PM CDT IMPRESSION: There is no mammographic evidence of malignancy. RECOMMENDATION: Annual screening mammography. BI-RADS 1: Negative. Narrative 08/22/2025 1:47 PM CDT [facility] SCREENING BILATERAL DIGITAL W CAD W NATHANIEL EXAM DATE: 08/22/2025 8:29 AM HISTORY: 40 years year old Female. Encounter for screening mammogram for malignant neoplasm of breast TECHNIQUE: Standard bilateral mammographic views were obtained. Additional 3D tomographic mammography was also obtained. Current study was also evaluated with a Computer Aided Detection (CAD) system. COMPARISON: There are no previous examinations available for comparison. FINDINGS: The breasts are heterogeneously dense, which may obscure small masses. (Category C) No suspicious masses, calcifications, architectural distortion or other findings. us Claude Del Angel MD IMG MAMMO ORDERABLES F inal Result * HEPATITIS C ANTIBODY (01/06/2025 10:10 AM FORKLIFT SUPERVISOR) hepatitis C antibody 0.09 <1 S/CO 01/06/2025 10:58 PM FORKLIFT SUPERVISOR [facility] Comment: Signal/Cutoff ratio < 0.79 is Nondetected Signal/Cutoff ratio 0.80-0.99 is Grayzone Signal/Cutoff ratio > 0.99 is Detected Supplemental assays are recommended if signal/cutoff ratio is >/=1.00. Signal/cutoff ratio result >/= 5.00 is 97% predictive of positivity for recombinant immunoblot assay (RIBA) and will be reported to the [place] [facility] as required. Blood Venipuncture / Unknown 01/06/2025 10:10 AM FORKLIFT SUPERVISOR 01/06/2025 11:06 AM FORKLIFT SUPERVISOR us Mikala Eaton DO CHEMISTRY ORDERABLES Final Re sult [facility] [address] [place] [address], [place] * PATHOLOGY CYTOLOGY SENIOR SYSTEMS ARCHITECT (03/07/2022 12:00 AM CDT) 03/07/2022 us Not On File Provider PATHOLOGY/CYTOLOGY ORDERABL ES Final Result Performing Organization Address City/[facility]/ZIP Co de Phone Number SCAN from Last 3 Months or Most Recently Relevant to Health Maintenance Insurance [facility] Care Teams Composite Laminator Relationship Specialty Start Date End Date Mikala Eaton DO 2 [facility] [address] [place] [address] PCP - General Family Medicine 04/25/24 Arash Green MD #[address] [facility] [address] [place] [address] Consulting Physician Colon and Rectal Surgery 07/10/21 Monik Blanc APRN, POLYSOMNOGRAPHY TECH [address] [place] [address] [facility] [address] [facility] [place] [address] Family Medicine 07/04/22 Huong Patrick APRN, POLYSOMNOGRAPHY TECH #[address] [facility] [address] [place] [address] Nurse Practitioner Pulmonary Disease 06/22/24
[2025-11-04 12:32] VITALS: BP 123/63; PULSE 72; RESP 18; TEMP 36.7; O2SAT 100
--- NOTE | 2025-11-04 13:04 | ED_ITS ---
HPI - URI/Sore Throat General Chief Complaint: Upper Respiratory Infection Stated Complaint: Chest Congestion/Breathing Problem/Cough Time Seen by Provider: 11/04/25 13:04 Source: patient Mode of arrival: ambulatory Limitations: no limitations History of Present Illness HPI Narrative: Barbara is a 40-year-old female patient presenting to the clinic today with complaints of chest congestion, cough, sore throat, body aches, and feeling feverish x4 days. She denies any chest pain or shortness of breath at this time. Has taken DayQuil for her symptoms. MD elicited complaint: sore throat and nasal congestion Related Data Home Medications ?Medication ?Instructions ?Recorded ?Confirmed ?Last Taken ?Type No Home Medications 11/04/25 11/04/25 U nknown History Allergies Allergy/AdvReac Type Severity Reaction Status Date / Time omeprazole Allergy Swelling Verified 11/04/25 12:21 Review of Systems Review of Systems: Pertinent positives per HPI. Patient denies any rash, headache, visual changes, dizziness, shortness of breath, chest pain, palpitations, nausea, vomiting, diarrhea, constipation, abdominal pain, or any urinary issues. [facility] Past Medical History Medical History (Updated 11/04/25 @ 13:09 by Shaheen Strickland APRN) No pertinent past medical history Surgical History Surgical History No pertinent past surgical history Family History Family History Mother Family history non-contributory Social History Social History Substance use: never Gender identity (if verbalized by the patient): Female Spiritual care concerns: No Comments At the time of my signature, I reviewed and agree with the nursing past medical, surgical, social, and family history. There is no relevant family history pertinent to the patient complaint. Exam Narrative: General: Well-developed, well nourished, in no apparent distress Head: Normocephalic, atraumatic Eyes: Pupils equally round and reactive to light bilaterally, EOM intact, sclera and conjunctive clear, no discharge, lids normal Ears: TMs intact and clear, ear canals clear, no drainage, grossly hearing normal. Nose: Nares patent, clear discharge, mild inflammation, no sinus tenderness. Mouth: Oral pharynx red without lesions or masses, good dentition, MMM. Postnasal drip Neck: Supple, trachea midline, no enlargement of anterior or posterior cervical nodes, no thyroid masses or goiter palpable. Cardio: Regular rate and rhythm, s1 and s2 normal, no murmur appreciated. Resp: Clear to auscultation bilaterally, no rhonchi, rales, wheezing or rubs Course Course Level of Care: Express Care Visit Vital Signs Vital signs: Vital Signs Temperature 36.7 C 11/04/25 12:32 Pulse Rate 72 11/04/25 12:32 Respiratory Rate 18 11/04/25 12:32 Blood Pressure 123/63 11/04/25 12:32 Pulse Oximetry 100 11/04/25 12:32 Oxygen Delivery Room Air 11/04/25 12:32 Temperature 36.7 C 11/04/25 12:32 Pulse Rate 72 11/04/25 12:32 Respiratory Rate 18 11/04/25 12:32 Blood Pressure 123/63 11/04/25 12:32 Pulse Oximetry 100 11/04/25 12:32 Oxygen Delivery Room Air 11/04/25 12:32 MDM MDM Narrative Medical decision making narrative: At the time of visit patient is resting comfortably on the exam table. Patient appears to be nontoxic. Complaints of chest congestion, cough, sore throat, body aches, and feeling feverish x4 days. She denies any chest pain or short ness of breath at this time. Has taken DayQuil for her symptoms. On exam patient has bilateral TMs intact and clear, clear nasal drainage, mild anterior turbinate inflammation, no sinus tenderness, oral pharynx mildly red with postnasal drip, heart rates regular rate and rhythm, lung sounds are clear. COVID, influenza, and strep test were ordered. Labs: COVID, influenza, and strep test were all negative in the clinic today. We will send strep for culture. Plan: I suspect patient has URI/pharyngitis/viral syndrome. Work note was given. Supportive measures were discussed with the patient and they voiced understanding discharge instructions and agrees to treatment plan. Return precautions reviewed Differential Diagnosis Differential Diagnosis: Differential diagnostic considerations for upper respiratory infection include upper respiratory infection, croup, otitis media, sinusitis, viral infection, bronchitis, influenza, pharyngitis, strep, uvulitis. Lab Data Labs: Lab Results 11/04/25 Range/Units 13:06 POC Influenza A Ag Negative (Negative) POC Influenza B Ag Negative (Negative) POC SARS CoV-2 Ag Negative (Negative) POC Grp A Strep Screen Negative (Negative) Discharge Plan Discharge Clinical Impression: Viral infection Upper respiratory infection Qualifiers: URI type: unspecified URI Qualified Code(s): J06.9 - Acute upper respiratory infection, unspecified Pharyngitis Qualifiers: Pharyngitis/tonsillitis etiology: unspecified etiology Qualified Code(s): J02.9 - Acute pharyngitis, unspecified Patient Disposition: Home Condition: Stable Instructions: Antibiotic Form, Pharyngitis (ED), Viral Syndrome (ED), Cold Symptoms (ED) Additional Instructions: May take DayQuil/NyQuil for cold/flu symptoms May take Mucinex as needed for congestion. Increase fluids and stay well hydrated May take Tylenol or motrin as directed on bottle for pain/fever May use Flonase 1 spray in each nare daily May take OTC antihistamines such as Zyrtec or Claritin daily as directed on bottle May apply Vicks vapor rub to chest to open sinuses Sinus rinses for congestion Cepacol spray, cough drops, throat lozenges, warm tea with honey/lemon, gargle salt water to soothe throat BRAT diet for diarrhea Clear liquids x 24 hours then advance as tolerated for nausea/vomiting Go to the ED if you develop a worsening in your condition- high fever not controlled by Tylenol or Motrin, dehydration, weakness, lethargy, shortness of breath, or chest pain. Follow up with your PCP in 3-5 days if symptoms persist. Patient Language: Nicaraguan Prescriptions: No Action No Home Medications Follow-up/Referrals: Angelito,Mikala Ortiz DO [Primary Care Provider, Unknown] Time of Disposition: 13:09 Quality NIHSS Nursing Documentation ED NIHSS nursing documentation: reviewed/agree
[2025-11-04 13:08] LABS: EDCOVIDSCREEN Negative (Negative); EDINFLUASCREEN Negative (Negative); EDINFLUBSCREEN Negative (Negative); EDSTREPNEGPOS1 Negative (Negative)
== END 2025-11-04 13:15 | disposition home or self-care (01) ==
PROVIDERS: Emergency Provider Nurse Practitioner Family; PCP Student in an Organized Health Care Education/Training Program
DX: B34.9 Viral infection, unspecified (principal); J06.9 Acute upper respiratory infection, unspecified; J02.9 Acute pharyngitis, unspecified; Z20.822 Contact with and (suspected) exposure to COVID-19
CPT/HCPCS: 87081; 87426; 87804; 87880; 99213; G0463